=== PATIENT | male | born 1985 | race Caucasian/White ===

== ENCOUNTER 2019-09-18 11:14 | Outpatient (CLI) | payer BC, SELFPAY ==
[2019-09-23 11:03] LABS: SARS-CoV-2 RNA Undetected (Undetected); SARS-CoV-2 Specimen Source Nasopharynx
== END 2019-09-18 11:34 ==
PROVIDERS: Visit Provider Nurse Practitioner Family
DX: Z11.59 Encounter for screening for other viral diseases (principal)
CPT/HCPCS: U0003

== ENCOUNTER 2023-09-30 14:55 | Outpatient (REF) | payer BC, SELFPAY ==
[2023-09-30 19:25] LABS: ALT 39 U/L (16-63); AST 25 U/L (15-37); Albumin 3.8 g/dL (3.4-5.0); Alkaline Phosphatase 55 U/L (46-116); Anion Gap 6.1 mmol/L (3-11); BUN 5 mg/dL (7-18); Bilirubin, Total 0.48 mg/dL (0.2-1.0); CO2 30.9 mmol/L (21.0-32.0); Calcium 8.8 mg/dL (8.5-10.1); Calculated LDL 120 mg/dL (<100); Chloride 103 mmol/L (98-107); Cholesterol 177 mg/dL (<200); Estimated GFR 100.03 (mL/min/1.73m2); Glucose 96 mg/dL (74-106); HDL Cholesterol 50 mg/dL (40-60); Magnesium 1.8 mg/dL (1.8-2.4); Potassium 3.8 mmol/L (3.5-5.1); Sodium 140 mmol/L (136-145); TSH (W/Ref FT4) 0.94 uIU/mL (0.36-3.74); Total Protein 7.4 g/dL (6.4-8.2); Triglyceride 36 mg/dL (<150)
[2023-10-02 09:20] LABS: HIV-1/2 Ag & Ab Screen Negative (Negative)
[2023-10-03 09:44] LABS: HBs Antibody, Quant 637.7 mIU/mL (See Note); Hepatitis B Surface Ab Positive (See Note)
[2023-10-03 10:53] LABS: Hepatitis C Ab w Rflx HCV PCR Negative (Negative)
[2023-10-03 12:09] LABS: Chlamydia Result Negative (Negative); GC Result Negative (Negative)
[2023-10-03 12:43] LABS: HSV Type 1 Ab, IgG Negative (Negative); HSV Type 2 Ab, IgG Negative (Negative)
[2023-10-03 13:25] LABS: Syphilis Serology (RPR) Negative (Negative)
== END 2023-09-30 14:56 | disposition home or self-care (01) ==
LOC: NCHCN 14:55
PROVIDERS: PCP Family Medicine; Visit Provider Family Medicine
DX: Z13.220 Encounter for screening for lipoid disorders (principal); Z11.59 Encounter for screening for other viral diseases; R53.83 Other fatigue; R25.1 Tremor, unspecified
CPT/HCPCS: 80053; 80061; 86706; 86803; 87389; 87491; 87591; 83735; 84443; 86592; 86695; 86696